=== PATIENT | male | born 1955 | race Caucasian/White ===

== ENCOUNTER 2016-10-21 05:37 | Inpatient (IN) | payer OTHER ==
--- NOTE | 2016-10-15 15:05 | PREOPHP ---
DATE OF ADMISSION: 10/21/2016 DATE OF SURGERY: 10/21/[address] 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 The patient has not been working for the last several months. He underwent a shoul thalia cuff repair in July and did fairly well. He has had bilateral leg pain with standing or wal neel. He has had the sense that his left leg is unsteady and may feel like it is going out. There is numbness of the left great toe. PAST MEDICAL HISTORY: Relatively unremarkable other than for the back problem. CURRENT MEDICATIONS: He takes no medications. ALLERGIES: HE HAS NO ALLERGIES. PAST SURGICAL HISTORY: Only surgery has been previous knee surgery, shoulder cuff repair, and amput ation of the left ring finger at the IP joint for injury. FAMILY HISTORY: The patient was born in [place]. The patient is with 2 grown children. There are 3 siblings who are also well. He is not in the armed services. REVIEW OF SYSTEMS: There has been some weight gain with his immobility. 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 There are no headaches or dizzi ness. EYES AND EARS: Unremarkable. CARDIOPULMONARY: He denies any shortness of breath, cough, or exertional chest pain, no history of hypertension, coronary artery disease. GENITOURINARY: Asymptomatic. He has had a colonoscopy. JOINTS: Fairly good. His shoulder is better after surgery. His back is as noted. GENITOURINARY: Asymptomatic. No bowel difficulties. PHYSICAL EXAMINATION: VITAL SIGNS: Blood pressure is 128/82, pulse 96, he is afebrile, 233 pounds, about 6 feet tall. HEAD, EYES, EARS, NOSE, AND THROAT: No signs of trauma. His speech pattern is somewhat fluent with occasional stammer. NECK: Supple, no bruits. LUNGS: Clear. HEART: Sounds regular, no murmurs. ABDOMEN: Soft, without any abnormality noted. There is a small umbilical hernia, but no inguinal h ernia. EXTREMITIES: No clubbing, cyanosis, edema. Good peripheral pulses. His quadriceps and lower extre mity muscles are somewhat reduced in strength in his leg and a slight reduction in his strength at h is toe flexors. IMPRESSION: 1. Preoperative evaluation. 2. Spinal stenosis. 3. General good health. DISCUSSION: At this time, his medical status is acceptable for surgery. He does give a cloudy hist ory of "hepatitis" at some time without jaundice or actual sickness which may have been a blood test finding. Hepatitis B and C will be evaluated. Chest x-ray, EKG are normal. Laboratory tests are all normal. Thank you for asking us to see him at this time. Dictated By: YENI BAUTISTA MD SR/NTS Conf#: [id number] DID#: [id number]
[2016-10-20 09:29] VITALS: Ht 180.3 cm; Wt 102.2 kg
[~2016-10-21] VITALS: Ht 180.3 cm; Wt 102.2 kg
[2016-10-21] VITALS (25 sets, daily range): BP systolic 112–158; BP diastolic 59–90; PULSE 68–90; RESP 11–20
[~2016-10-21 05:37] MED LIST: CEFAZOLIN 2 GM/50 ML (PMX) 50 ML IVPB ONE; GLUC1CAP37 PO; LACTATED RINGER'S 1,000 ML IV* SCH; VIC PO
[2016-10-21] MEDS ORDERED: SURGIFOAM POWDER 1 GM KIT ONE (06:42)
[2016-10-21] MEDS ORDERED: CEFAZOLIN 1 GM INJ ONE (06:42)
[2016-10-21] MEDS ORDERED: GELATIN SIZE 100 SPONGE ONE (06:42)
[2016-10-21] MEDS ORDERED: BUPIVACAINE 0.25% (MPF) 30 ML INJ ONE (06:42)
[2016-10-21] MEDS ORDERED: BUPIVACAINE 0.25%/EPI (SDV) 30 ML INJ ONE (06:43)
[2016-10-21] MEDS ORDERED: CA CHLORIDE 10% 10 ML SYRINGE ONE (06:44)
[2016-10-21] MEDS ORDERED: THROMBIN 5000 UNIT VIAL ONE (06:44)
--- NOTE | 2016-10-21 06:52 | HPN ---
Date/Time of Note Date/Time of Note DATE: 10/21/16 TIME: 06:52 Interval H&P Admission Note Pt. seen H&P reviewed: No system changes COLEEN HOWELL MD Oct 21, 2016 06:52
[2016-10-21] MEDS ORDERED: DIPHENHYDRAMINE 50 MG INJ IV PRN ×2 (07:00→12:00)
[2016-10-21] MEDS ORDERED: CEFAZOLIN 1 GM/50 ML (PMX) 50 ML IVPB SCH (07:00)
[2016-10-21] MEDS ORDERED: CYCLOBENZAPRINE 10 MG TAB PO PRN (07:00)
[2016-10-21] MEDS ORDERED: HYDROCODONE/APAP (10/325) TAB PO PRN ×2 (07:00)
[2016-10-21] MEDS ORDERED: DIPHENHYDRAMINE 25 MG CAP PO PRN (07:00)
[2016-10-21] MEDS ORDERED: HYDROmorphONE 1 MG/ML SYG IV PRN (07:00)
[2016-10-21] MEDS ORDERED: ROCURONIUM 50 MG INJ ONE ×2 (07:00→11:20)
[2016-10-21] MEDS ORDERED: ONDANSETRON 4 MG INJ IV PRN ×2 (07:00→12:00)
[2016-10-21] MEDS ORDERED: ACETAMINOPHEN 325 MG TAB PO PRN (07:00)
[2016-10-21] MEDS ORDERED: CEPASTAT LOZENGE MT PRN (07:00)
[2016-10-21] MEDS ORDERED: BISACODYL 10 MG SUPP PR PRN (07:00)
[2016-10-21] MEDS ORDERED: AL HYDROX/MG HYDROX/SIMETH 30 ML CUP PO PRN (07:00)
[2016-10-21] MEDS ORDERED: NALOXONE (0.4 MG/ML) INJ IV PRN (07:00)
[2016-10-21] MEDS ORDERED: MIDAZOLAM 1 MG/ML 2 ML INJ ONE (07:05)
[2016-10-21] MEDS ORDERED: HEPARIN 1000 UNITS/ML 10 ML INJ ONE (07:30)
[2016-10-21] MEDS ORDERED: BUPIVACAINE 0.25% (MPF) 30 ML INJ INJ ONE ×2 (07:34→10:53)
[2016-10-21] MEDS ORDERED: THROMBIN 5000 UNIT VIAL TOP ONE ×2 (07:34→10:11)
[2016-10-21] MEDS ORDERED: morphine 10 MG INJ ONE (08:00)
[2016-10-21] MEDS ORDERED: METOPROLOL 5 MG INJ ONE (08:01)
[2016-10-21] MEDS ORDERED: NORCO PRN (08:50)
[2016-10-21] MEDS: DOCUSATE SODIUM 100 MG CAP PO SCH ×2 (09:00→20:56)
--- NOTE | 2016-10-21 09:38 | RADRPT ---
PROCEDURE: XR Lumbar Spine one view. CLINICAL INDICATION: Low back pain. Intraoperative. TECHNIQUE: Prone portable cross-table lateral. COMPARISON: No prior studies are available for comparison. FINDINGS: For the purposes of this report, the last apparent true disc level is considered to be L5-S1. Based on this, the posterior needle markers are present at the upper L2 spinous process level and lower L 5 spinous process level. IMPRESSION: 1. Intraoperative imaging as described above. RPTAT: QQ .Khoi Shah MD, Date Time Electronically viewed and signed by .Khoi Shah MD, on 10/21/2016 09:38 .R/
--- NOTE | 2016-10-21 09:39 | RADRPT ---
PROCEDURE: XR Lumbar Spine one view. CLINICAL INDICATION: Low back pain. Intraoperative. TECHNIQUE: Prone portable cross-table lateral. COMPARISON: Prior study done earlier the same day. FINDINGS: For the purposes of this report, the last apparent true disc level is considered to be L5-S1. Based on this, the posterior surgical instruments are present at the upper L3 spinous process level, mid L4 spinous process level, and mid to lower L5 spinous process level. IMPRESSION: 1. Intraoperative imaging as described above. RPTAT: QQ .Khoi Shah MD, MD Date Time Electronically viewed and signed by .Khoi Shah MD, MD on 10/21/2016 09:38 .R/
[2016-10-21] MEDS ORDERED: FENTAnyl 50 MCG/ML VIAL ONE (10:49)
[2016-10-21] MEDS ORDERED: BUPIVACAINE 0.25% (MPF) 10 ML 10 ML VIAL ONE (10:49)
[2016-10-21] MEDS ORDERED: FENTANYL 100MCG INJ IV ONE (10:56)
[2016-10-21] MEDS ORDERED: LIDOCAINE 2% (SDV) 5 ML INJ ONE (11:20)
[2016-10-21] MEDS ORDERED: PROPOFOL 40 ML ONE (11:20)
[2016-10-21] MEDS ORDERED: ONDANSETRON 4 MG INJ ONE (11:21)
[2016-10-21] MEDS ORDERED: GLYCOPYRROLATE 1 MG INJ ONE (11:21)
[2016-10-21] MEDS ORDERED: NEOSTIGMINE 3 MG/3 ML SYRINGE ONE (11:21)
[2016-10-21] MEDS ORDERED: LABETALOL HCL 20MG INJ IV PRN (12:00)
[2016-10-21] MEDS ORDERED: hydrALAzine 20 MG INJ IV PRN (12:00)
[2016-10-21] MEDS ORDERED: HYDROmorphONE (0.2 MG/ML) 10ML SYG IV PRN ×2 (12:00)
[2016-10-21] MEDS ORDERED: MEPERIDINE 25 MG INJ IV PRN (12:00)
[2016-10-21] MEDS ORDERED: FENTAnyl 50 MCG/ML VIAL IV PRN (12:00)
[2016-10-21] MEDS: HYDROmorphONE 0.2 MG/ML PCA IV SCH (12:23)
--- NOTE | 2016-10-21 12:44 | OPR ---
DATE OF OPERATION: 10/21/2016 PREOPERATIVE DIAGNOSES: Degenerative scoliosis with stenosis at L2 to L3, L3 to L4, L4 to L5, and L5 to S1 with radiculopathy. POSTOPERATIVE DIAGNOSES: Degenerative scoliosis with stenosis at L2 to L3, L3 to L4, L4 to L5, and L5 to S1 with radiculopathy. PROCEDURES: 1. Central decompressive laminectomy with decompression of L2, L3, L4, L5, and S1 nerve roots bilaterally. 2. Use of operative microscope. 3. Lateral localizing film x2. 4. Epidural injection via catheter. 5. Intraoperative neuromonitoring (3.5 hours). 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 My periodicals library assistant also employed the suction catheters to evacuate blood from the surgical field to improve visualization of the neural structures. The periodicals library assistant was medically necessary to facilitate the completion of the surgery in a safe and expeditious manner. [facility] regulations, as well as hospital bylaws, preclude the use of non-licensed health care personnel, such as operating room technicians, to perform these functions. FINDINGS: Neuromonitoring at the start of the case revealed L2, L3, L4, L5, and S1 amplitudes bilaterally down over 90 per cent. At the end of the case, nerve signals returned to normal. The patient had stenosis from L2 to the sacrum with a degenerative scoliosis. ESTIMATED BLOOD LOSS: 350 mL. Blood returned via [employer]. DRAINS: x1. SPECIMENS: Spinous processes were sent to pathology. COMPLICATIONS OF PROCEDURES: None. ANESTHESIOLOGIST: Rey Buckley MD TYPE OF ANESTHESIA: General. INDICATIONS FOR PROCEDURE: This is a 61-year-old gentleman with lumbosacral radiculopathy in the setting of stenosis. He has failed nonoperative measures, therefore I recommended proceeding with above-mentioned surgery. Preoperatively , we discussed the risks, benefits, and alternatives. He understood and wished to proceed. DESCRIPTION OF PROCEDURE IN DETAIL: The patient was identified in the preoperative holding area, given Ancef antibiotic, taken to the operating room, where he was successfully placed under general anesthesia. Neuromonitoring leads were placed, sequential compressive devices were applied. Dunn catheter was introduced. Neuromonitoring was utilized during the procedure for 3.5 hours to include SSEP, MEP, and EMG. This was performed by [employer]. Start time was 7:45 a.m., closure time was 11:15 a.m. The patient was placed in downward turned prone position over a Leobardo frame. All bony prominences were well padded. The back was then prepped and draped in usual sterile fashion. Spinal needles were placed, lateral localizing films obtained to confirm the correct levels. Once this was confirmed, I incised the skin down to dorsal fascia, which was incised with Bovie cautery. I then subperiosteally dissected the L2, L3, L4, L5, and S1 lamina. Kochers were placed around the spinous processes and repeat lateral films obtained to confirm the correct levels. Once this was confirmed, I performed a central decompressive laminectomy at L2 to L3, L4 to L5 and L5 to S1. Ligamentum flavum was then sharply dissected. I decompressed the central canal and the L2, L3, L4, L5, and S1 nerve roots bilaterally. I identified each of the nerve roots and decompressed them. I then brought the microscope to complete the decompression. Once this was decompressed, all nerve signals returned to normal. Hemostasis was achieved with Surgifoam. Bone wax was applied to the bony edges. The wound was then irrigated. Microscope was taken off the field. A Valsalva maneuver was performed and there was no leak of CSF. I passed an epidural catheter through which I injected 100 mcg of fentanyl mixed with 2 mL of Marcaine 0.25% preservative-free, and the catheter was pulled. Anesthesiologist morgan peripheral blood, using the [employer] device. I took the platelet-poor plasma and mixed this with thrombin and injected this over the dura for hemostatic purposes. I then removed the retractors. I placed a deep subfascial drain and closed the deep fascia with #1 Vicryl stitch. I closed subcutaneous tissue with 2-0 Vicryl stitch. A 4-0 Monocryl closure was then performed. Dermabond and sterile dressings were then applied. The patient was then awakened from anesthesia and taken to recovery room in stable condition. Lap sponge and instrument counts were correct x2. There were no apparent complications during the procedure. The patient will be admitted to the orthopedic dia for routine postoperative care to include pain control, neurovascular checks, antibiotics, and physical therapy. Dictated By: RUI GARCIA/PHILIPP Conf#: [id number] DID#: [id number] CC: NATHALY IBARRA;*EndCC* MTDD
[2016-10-21] MEDS: D5W-0.45 NACL + KCL 20 MEQ 1,000 ML IV SCH ×2 (13:24→15:50)
[2016-10-21] MEDS: CEFAZOLIN 1 GM/50 ML (PMX) 50 ML IVPB SCH ×2 (15:10→22:40)
[2016-10-22] MEDS: D5W-0.45 NACL + KCL 20 MEQ 1,000 ML IV SCH ×3 (00:07→21:57)
[2016-10-22 05:14] LABS: ADD SCAN DIFF NO
[2016-10-22 05:19] LABS: BASOPHILS % 0.1 % (0.0-2.0); EOSINOPHILS % 0.3 % (0.0-7.0); HEMATOCRIT 36.2 % (42.0-52.0); HEMOGLOBIN 12.1 g/dl (14.0-18.0); LYMPHOCYTES # 1.6 10^3/ul (0.8-2.9); LYMPHOCYTES % 20.2 % (15.0-51.0); MEAN CORPUSCULAR HEMOGLOBIN 32.4 pg (29.0-33.0); MEAN CORPUSCULAR HGB CONC 33.4 g/dl (32.0-37.0); MEAN CORPUSCULAR VOLUME 96.8 fl (82.0-101.0); MEAN PLATELET VOLUME 11.5 fl (7.4-10.4); MONOCYTE # 0.8 10^3/ul (0.3-0.9); MONOCYTES % 10.4 % (0.0-11.0); NEUTROPHIL # 5.4 10^3/ul (1.6-7.5); NEUTROPHILS % 68.7 % (39.0-77.0); PLATELET COUNT 135 10^3/UL (140-415); RED BLOOD COUNT 3.74 10^6/ul (4.70-6.10); RED CELL DISTRIBUTION WIDTH 12.1 % (11.5-14.5); WHITE BLOOD COUNT 7.9 10^3/ul (4.8-10.8)
[2016-10-22 05:37] LABS: CREATININE 0.84 mg/dl (0.61-1.24)
[2016-10-22 05:38] LABS: CALCIUM 8.6 mg/dl (8.4-10.2); MAGNESIUM 1.7 mg/dl (1.7-2.5)
[2016-10-22] MEDS ORDERED: PANTOPRAZOLE 40 MG INJ IV SCH (06:00)
[2016-10-22] MEDS: CEFAZOLIN 1 GM/50 ML (PMX) 50 ML IVPB SCH (06:20)
[2016-10-22 07:00] VITALS: BP 113/74; RESP 20
[2016-10-22] MEDS: HYDROmorphONE 0.2 MG/ML PCA IV SCH (07:30)
[2016-10-22] MEDS: DOCUSATE SODIUM 100 MG CAP PO SCH ×2 (08:33→21:57)
--- NOTE | 2016-10-22 10:21 | PN ---
Date/Time of Note Date/Time of Note DATE: 10/22/16 TIME: 10:18 Assessment/Plan Lines/Catheters IV Catheter Type (from Nrsg): Peripheral IV Dunn in Place (from Nrsg): Yes Assessment/Plan Assessment/Plan s/p lumbar decompression, doing well continue PT, continue pain control and routine care Subjective 24 Hr Interval Summary patient notes improvement in leg sx c/o post operative LBP Exam/Review of Systems Vital Signs Vitals Vital Signs Date Time Temp Pulse Resp B/P Pulse Ox O2 Delivery O2 Flow Rate FiO2 10/22/16 09:00 20 10/22/16 07:43 Nasal Cannula 2.0 10/21/16 23:46 98.1 112 133/74 98 Intake and Output 10/21/16 10/21/16 10/22/16 15:00 23:00 07:00 Intake Total 1950 ml 720 ml 1700 ml Output Total 730 ml 500 ml 1220 ml Balance 1220 ml 220 ml 480 ml Exam Free Text/Dictation NVID drain intact, dressing intact drain output 220 cc/last shift Results Result Diagram: 10/22/16 0420 10/22/16 0420 TEODORO ANGLIN PA-C Oct 22, 2016 10:21
--- NOTE | 2016-10-22 13:05 | PN ---
Date/Time of Note Date/Time of Note DATE: 10/22/16 TIME: 13:00 Assessment/Plan VTE Prophylaxis VTE Prophylaxis Intervention: anti-embolic stocking Lines/Catheters IV Catheter Type (from Nrsg): Peripheral IV Urinary Cath still in place: Yes Subjective 24 Hr Interval Summary Free Text/Dictation mr fortune is one day post op l spine surgery he is somewhat confused with mild sinus tach fair wound vacc drainage, hgb 12.4 urine volume ok non focal, no lower ext numbness and good strenth today at bedside, says he may be somewhat confused lately, but this is much worse most likely mild delirium, would stop the iv narcotics and do po if needed Exam/Review of Systems Vital Signs Vitals Vital Signs Date Time Temp Pulse Resp B/P Pulse Ox O2 Delivery O2 Flow Rate FiO2 10/22/16 09:00 20 10/22/16 07:43 Nasal Cannula 2.0 10/22/16 07:00 98.7 116 113/74 97 Intake and Output 10/21/16 10/21/16 10/22/16 14:59 22:59 06:59 Intake Total 1950 ml 720 ml 1700 ml Output Total 730 ml 500 ml 1220 ml Balance 1220 ml 220 ml 480 ml Results Result Diagram: 10/22/16 0420 10/22/16 0420 Results 24 hrs Laboratory Tests Test 10/22/16 04:20 White Blood Count 7.9 Red Blood Count 3.74 L Hemoglobin 12.1 L Hematocrit 36.2 L Mean Corpuscular Volume 96.8 Mean Corpuscular Hemoglobin 32.4 Mean Corpuscular Hemoglobin Concent 33.4 Red Cell Distribution Width 12.1 Platelet Count 135 L Mean Platelet Volume 11.5 H Neutrophils % 68.7 Lymphocytes % 20.2 Monocytes % 10.4 Eosinophils % 0.3 Basophils % 0.1 Nucleated Red Blood Cells % 0.0 Neutrophils # 5.4 Lymphocytes # 1.6 Monocytes # 0.8 Eosinophils # 0.0 Basophils # 0.0 Nucleated Red Blood Cells # 0.0 Sodium Level 138 Potassium Level 4.0 Chloride Level 99 Carbon Dioxide Level 31 Anion Gap 12 Blood Urea Nitrogen 11 Creatinine 0.84 Glucose Level 119 Calcium Level 8.6 Magnesium Level 1.7 Medications Medications Current Medications Potassium Chloride/Dextrose/ Sod Cl (D5-1/2ns + KCl 20 Meq) 1,000 ml @ 100 mls/ hr Q10H IV Last administered on 10/22/16 11:56; Admin Dose 100 MLS/HR; Start 10/21/16 at 06:47 Acetaminophen/ Hydrocodone Bitart ([place] (10/325)) 1 tab Q4H PRN PO PAIN LEVEL 1-5; Start 10/21/16 at 07:00 Hydromorphone HCl (Dilaudid) 0.2 mg Q1H PRN IV BREAKTHROUGH PAIN; Start at 07:00 Ondansetron HCl (Zofran Inj) 4 mg Q6H PRN IV NAUSEA AND/OR VOMITING; Start at 07:00 Bisacodyl (Dulcolax Supp) 10 mg DAILY PRN [place] CONSTIPATION; Start 10/21/16 at 07 :00 Docusate Sodium (Colace) 100 mg BID PO Last administered on 10/22/16 08:33; Admin Dose 100 MG; Start 10/21/16 at 09:00 Pantoprazole (Protonix Iv) 40 mg DAILY@06 IV Last administered on 10/22/16 05: 38; Admin Dose 40 MG; Start 10/22/16 at 06:00 Al Hydrox/Mg Hydrox/Simethicone (Mag-Al Plus) 15 ml Q6H PRN PO CONSTIPATION/ DYSPEPSIA; Start 10/21/16 at 07:00 Acetaminophen (Tylenol Tab) 650 mg Q4H PRN PO MESA OR TEMP GREATER THAN 101.3F; Start 10/21/16 at 07:00 Cyclobenzaprine HCl (Flexeril) 10 mg TID PRN PO MUSCLE SPASMS Last administered on 10/22/16 00:11; Admin Dose 10 MG; Start 10/21/16 at 07:00 Phenol (Cepastat Lozenge) 1 lozenge PRN PRN MT SORE THROAT; Start 10/21/16 at 07:00 Diphenhydramine HCl (Benadryl) 25 mg Q6H PRN PO ITCHING; Start 10/21/16 at 07: 00 Diphenhydramine HCl (Benadryl) 25 mg Q6H PRN IV ITCHING; Start 10/21/16 at 07: 00 Naloxone HCl (Narcan) 0.2 mg Q2M PRN IV RR 8 BREATHS/MIN OR LESS; Start at 07:00 Hydromorphone HCl (Dilaudid CONSERVATION POLICY ANALYST) CONSERVATION POLICY ANALYST to be started in PACU Q4PCA IV Last administered on 10/22/16t 07:30; Admin Dose 6 MG; Start 10/21/16 at 07:00 Miscellaneous Information 1. Hold CONSERVATION POLICY ANALYST at 1,000... CONSERVATION POLICY ANALYST IV ; Start 10/21/16 at 07: 00 Acetaminophen/ Hydrocodone Bitart ([place] (10325)) 2 tab Q4H PRN PO PAIN; Start 10/21/16 at 07:00 YENI BAUTISTA MD Oct 22, 2016 13:05
[2016-10-22] MEDS: HYDROCODONE/APAP (10/325) TAB PO PRN (13:11)
[2016-10-22 21:44] VITALS: BP 156/86; RESP 20
[2016-10-22 23:58] VITALS: BP 123/68; RESP 20
[2016-10-23] MEDS: HYDROCODONE/APAP (10/325) TAB PO PRN (02:05)
[2016-10-23 05:30] LABS: ADD SCAN DIFF NO
[2016-10-23 05:51] LABS: POTASSIUM 3.8 mmol/L (3.5-5.1)
[2016-10-23 05:54] LABS: CREATININE 0.85 mg/dl (0.61-1.24)
[2016-10-23 05:55] LABS: CALCIUM 8.5 mg/dl (8.4-10.2); MAGNESIUM 2.1 mg/dl (1.7-2.5)
[2016-10-23 05:57] LABS: BASOPHILS % 0.2 % (0.0-2.0); EOSINOPHILS % 0.4 % (0.0-7.0); HEMATOCRIT 34.5 % (42.0-52.0); HEMOGLOBIN 11.5 g/dl (14.0-18.0); LYMPHOCYTES # 1.7 10^3/ul (0.8-2.9); LYMPHOCYTES % 20.2 % (15.0-51.0); MEAN CORPUSCULAR HEMOGLOBIN 32.1 pg (29.0-33.0); MEAN CORPUSCULAR HGB CONC 33.3 g/dl (32.0-37.0); MEAN CORPUSCULAR VOLUME 96.4 fl (82.0-101.0); MEAN PLATELET VOLUME 11.6 fl (7.4-10.4); MONOCYTES % 11.9 % (0.0-11.0); NEUTROPHIL # 5.7 10^3/ul (1.6-7.5); NEUTROPHILS % 67.1 % (39.0-77.0); PLATELET COUNT 121 10^3/UL (140-415); RED BLOOD COUNT 3.58 10^6/ul (4.70-6.10); RED CELL DISTRIBUTION WIDTH 11.8 % (11.5-14.5); WHITE BLOOD COUNT 8.4 10^3/ul (4.8-10.8)
[2016-10-23] MEDS ORDERED: PANTOPRAZOLE (EC) 40 MG TAB PO SCH (06:00)
[2016-10-23 06:53] VITALS: BP 127/76; PULSE 78; RESP 18
[2016-10-23 07:37] VITALS: BP 131/75; RESP 18
--- NOTE | 2016-10-23 08:32 | PN ---
Date/Time of Note Date/Time of Note DATE: 10/23/16 TIME: 08:30 Assessment/Plan Lines/Catheters IV Catheter Type (from Nrsg): Peripheral IV Arguelles in Place (from Nrsg): Yes Assessment/Plan Assessment/Plan s/p lumbar decompression L2-S1 - doing well stable for D/C from ortho perspective D/C arguelles now D/C if able to urinate and if cleared by Dr. Mata Subjective 24 Hr Interval Summary patient notes improvement in back pain legs improved since surgery Exam/Review of Systems Vital Signs Vitals Vital Signs Date Time Temp Pulse Resp B/P Pulse Ox O2 Delivery O2 Flow Rate FiO2 10/23/16 07:37 98.2 93 18 131/75 95 10/23/16 06:53 Nasal Cannula 2.0 Intake and Output 10/22/16 10/22/16 10/23/16 15:00 23:00 07:00 Intake Total 500 ml 3080 ml 2300 ml Output Total 2825 ml 3475 ml Balance 500 ml 255 ml -1175 ml Exam Free Text/Dictation drain output 75cc/last shift - D/C'ed incision C/D/I - new dressing applied AF, VSS n- tachycardia resolved NVID Results Result Diagram: 10/23/16 0459 10/23/16 0459 TEODORO ANGLIN PA-C Oct 23, 2016 08:32
[2016-10-23] MEDS: D5W-0.45 NACL + KCL 20 MEQ 1,000 ML IV SCH (08:42)
[2016-10-23] MEDS: DOCUSATE SODIUM 100 MG CAP PO SCH (08:43)
--- NOTE | 2016-10-23 10:36 | RADRPT ---
Vent Rate: 111 bpm RR Interval: 0 msec AL Interval: 182 msec QRS Duration: 78 msec QT Interval: 320 msec QTC Interval: 435 msec P-R-T Mohler: 39 - 32 - 53 degrees Sinus tachycardia with occasional premature ventricular complexes and fusion complexes Otherwise normal ECG Electronically Signed By: Jay Carpio [id number]
--- NOTE | 2016-10-23 16:31 | DS ---
Date/Time of Note Date/Time of Note DATE: 10/23/16 TIME: 16:23 Discharge Summary Admission/Discharge Info Admit Date/Time Oct 21, 2016 at 05:37 Discharge Date/Time Oct 23, 2016 at 16:00 Final Diagnosis Degenerative scoliosis with stenosis at L2 to L3, L3 to L4, L4 to L5, and L5 to S1 with radiculopathy Patient Condition: Stable Consults Clifford Mata MD for Internal Medicine management. Procedures Central decompressive laminectomy with decompression of L2, L3, L4, L5, and S1 nerve roots bilaterally. Hx of Present Illness Patient with history of bilateral leg pain with standing or walking. He has had the sense that his left leg is unsteady and feels "like it is going out". There associated is numbness of the left great toe. Diagnosed with degenerative scoliosis with stenosis of the lumbar spine with radiculopathy. Failed medical management and admitted to [facility] to undergo decompression of the lumbar spine by Dr. Rooney. Hospital Course Post operative sinus tachycardia without chest pain and ALOC. Both resolved after discontinutation of PC pump. Clinically stable at this time. Home Meds Reported Medications [[place] Prn] No Conflict Check 10/21/16 Discontinued Reported Medications Gluc Hernandez/Chondroitin Sulfate A (Glucosamine Chondroitin Cap) 1 Cap Capsule, 1 CAP PO DAILY 11/12/11 Acetaminophen/Hydrocodone (Vicodin) 1 Tab Tab, 1 TAB PO Q6 Y 11/12/11 Follow-up Plan As per Dr. Rooney Pending Labs Laboratory Tests Test 10/23/16 04:59 White Blood Count 8.410^3/ul (4.8-10.8) Red Blood Count 3.5810^6/ul (4.70-6.10) Hemoglobin 11.5g/dl (14.0-18.0) Hematocrit 34.5% (42.0-52.0) Mean Corpuscular Volume 96.4fl (82.0-101.0) Mean Corpuscular Hemoglobin 32.1pg (29.0-33.0) Mean Corpuscular Hemoglobin Concent 33.3g/dl (32.0-37.0) Red Cell Distribution Width 11.8% (11.5-14.5) Platelet Count 35979^3/UL (140-415) Mean Platelet Volume 11.6fl (7.4-10.4) Neutrophils % 67.1% (39.0-77.0) Lymphocytes % 20.2% (15.0-51.0) Monocytes % 11.9% (0.0-11.0) Eosinophils % 0.4% (0.0-7.0) Basophils % 0.2% (0.0-2.0) Nucleated Red Blood Cells % 0.0/100WBC (0.0-0.0) Neutrophils # 5.710^3/ul (1.6-7.5) Lymphocytes # 1.710^3/ul (0.8-2.9) Monocytes # 1.010^3/ul (0.3-0.9) Eosinophils # 0.010^3/ul (0.0-0.5) Basophils # 0.010^3/ul (0.0-0.1) Nucleated Red Blood Cells # 0.010^3/ul (0.0-0.0) Sodium Level 138mmol/L (135-144) Potassium Level 3.8mmol/L (3.5-5.1) Chloride Level 101mmol/L (97-110) Carbon Dioxide Level 29mmol/L (21-31) Anion Gap 12 (8-16) Blood Urea Nitrogen 11mg/dl (7-20) Creatinine 0.85mg/dl (0.61-1.24) Glucose Level 121mg/dl (70-220) Calcium Level 8.5mg/dl (8.4-10.2) Magnesium Level 2.1mg/dl (1.7-2.5) DAVEY TOLEDO MD Oct 23, 2016 16:31
== END 2016-10-23 16:45 | disposition home or self-care (01) | DRG 517 ==
LOC: REC 05:37 → MS1 13:20
PROVIDERS: ADMIT Specialist; ATTEND Specialist
PROC: 01NB0ZZ Release Lumbar Nerve, Open Approach (ICD-10-PCS; principal; 2016-10-21 07:00)
DX: M47.27 Other spondylosis with radiculopathy, lumbosacral region (principal)
CPT/HCPCS: 72020; 80048; 83735; 85025; 86850; 86900; 86901; 86920; 86999; 93005; 97116; 97162; 97530; C9113; J0690; J1170; J1200; J1644; J2250; J2270; J2405; J2710; J3010; J3480